=== PATIENT | female | born 1975 | race Hispanic/Latino ===

== ENCOUNTER 2024-12-23 01:21 | Emergency (ER) | payer BC ==
[~2024-12-23] VITALS: Ht 160 cm; Wt 66.7 kg
[2024-12-23] MEDS: HYDROcodone/APAP 5/325 1 TAB TABLET PO ONE (01:40)
[2024-12-23] MEDS ORDERED: KETO10TA2 PO (01:42)
[2024-12-23] MEDS ORDERED: AMOX1TAB16 PO (01:42)
--- NOTE | 2024-12-23 01:44 | ERN ---
ED Note History of Present Illness Stated Complaint: TOOTHACHE Chief Complaint: Tooth Ache/Pain Time Seen by MD: :22 Time Seen by Midlevel: :25 Dictation: 49-year-old female with no past medical history coming in with complaints of right molar pain onset 2 hours ago. Patient states pain started after eating a "sweet. States the area sensitive to hot and cold beverages. Allergies: Coded Allergies: No Known Allergies (Unverified Allergy, Unknown, 12/23/24) Past Medical History Past Medical History: No Pertinent History Surgical History: None Review of System Dictation Constitutional: Negative for fever,chills, and weight loss Eyes: Negative for injury, pain,redness, and discharge ENT: Negative for injury,pain or swelling, right molar pain Cardiovascular: Negative for chest pain, palpitations, and edema Respiratory: Negative for shortness of breath, cough, and wheezing, Abdomen/GI: Negative for abdominal pain, nausea, vomiting, diarrhea, and constipation Back: Negative for injury and pain : Negative for injury, bleeding and discharge MS/Extremity: Negative for injury and deformity Skin: Negative for rash, and discoloration Neuro: Negative for headache, weakness, numbness, tingling, and seizure Psych: Negative for suicide ideation, homicidal ideation, and hallucinations Review of Systems: was completed Initial Vital Sign VS Vital Signs Date Time Temp Pulse Resp B/P (MAP) Pulse Ox O2 Delivery O2 Flow Rate FiO2 12/23/24 01:22 97.3 65 16 151/79 99 Room Air 12/23/24 01:27 0 21 Physical Exam Dictation General: awake, alert, NAD Head/Face: Normocephalic, atraumatic Eyes: PERRL, EOMI, vision at baseline ENT: oral cavity clear, TMs clear, no signs of infection, dental pain localized to the right molar number 31 tender to percussion, no surrounding with gingival swelling or abscess noted. Neck: Trachea midline, supple, no nuchal rigidity Cardiovascular: RRR, normal S1/S2, No MRGs, no JVD Respiratory: CTAB, no respiratory distress, No rales or wheezes Abdomen: Soft, non-tender, non-distended, normal bowel sounds, no guarding or rebound. Skin: Warm, dry, normal turgor, no rash MS/Extremity: Pulses equal, no cyanosis, neurovascular intact, FROM Neuro: COAx4, GCS 15, strength 5/5, CN 2-12 intact, normal cerebellar exam, normal gait, Psych: Normal behavior, mood, and affect normal ED Course ED Course Orders Procedure Category Date Status Time Hydrocodone/Apap PHA 12/23/24 Complete 5/325 ([place] 5/325mg) 01:30 Ondansetron Odt 4mg PHA 12/23/24 Complete Tab (Zofran 4mg Odt) 01:30 Current Medications Medications (Trade) Dose Ordered Sig/Bandar Route PRN Reason Start Time Stop Time Status Last Admin Dose Admin Acetaminophen/ Hydrocodone Bitart (NORco 5/325MG) 1 tab ONCE ONCE PO 12/23/24 01:30 12/23/24 01:34 DC Ondansetron HCl (zoFRAN 4MG ODT) 4 mg ONCE ONCE SL 12/23/24 01:30 12/23/24 01:34 DC Vital Signs Date Time Temp Pulse Resp B/P (MAP) Pulse Ox O2 Delivery O2 Flow Rate FiO2 12/23/24 01:27 98.1 74 18 154/66 100 Room Air* 0 21 12/23/24 01:22 97.3 65 16 151/79 99 Room Air Medical Decision Making MDM MDM: 49-year-old female with no past medical history coming in with complaints of right molar pain onset 2 hours ago. Patient states pain started after eating a "sweet. States the area sensitive to hot and cold beverages. Patient will be given pain management here in the emergency room and she has been follow up outpatient with a dentist for further evaluation intervention. Discussed with the patient on signs and symptoms of when to return back to the emergency room. Patient verbalized understanding, answered all questions. Differential diagnosis: The patient, to the avulsion, cellulitis Rationale: Tests considered and ordered secondary to shared decision making include: Previous outside records reviewed: Old ER visits. Risk of complication and/or morbidity or mortality of patient management: None Medications-Per medication reconciliation Need for hospitalization: Patient does not meet criteria for hospitalization. Need for emergency major/minor surgery: No There are no social concerns with this patient. Prescription drug management Prescriptions will include symptomatic care Patient's prior external medical records from other ER visits were reviewed by me as indicated. Prior testing and results from previous visits were reviewed. Prior tests were taken into account with medical decision making and resource utilization, independent historian/historians were used to obtain complete medical history. I independently interpreted the test that were performed, results were reviewed by me and considered findings on radiology if ordered. Medical management and examination interpretation discussions were had by me with other qualified healthcare professionals as indicated for the patient's care. DX & DISP Disposition: Discharge Departure Impression: Primary Impression: Tooth infection Condition: Stable Scripts Ketorolac Tromethamine (Ketorolac Tromethamine) 10 Mg Tablet 1 TAB PO Q6HPRN PRN for pain for 5 Days, #20 TAB 0 Refills Prov: MAGGIE CLAROS CNP 12/23/24 Amoxicillin/Potassium Clav (Amox Tr-K Clv 875-125 mg Tab) 875 Mg-125 Mg Tablet 1 EACH PO BID for 5 Days, #10 TAB 0 Refills Prov: MAGGIE CLAROS CNP 12/23/24 Additional Instructions: Take antibiotics as prescribed. You need to follow up with a dentist for further evaluation and intervention. Return to the hospital if you develop any facial swelling, redness, fever nausea or vomiting. Take the pain medication with food to avoid any GI upset. Referrals: NONE (PCP) Time of Disposition: 01:42 I have reviewed the case, and I agree with, Diagnosis and Plan MAGGIE CLAROS CNP Dec 23, 2024 01:44
[2024-12-23 01:56] VITALS: BP 148/75; PULSE 81; RESP 18; TEMP 98.1; O2SAT 100
== END 2024-12-23 01:57 | disposition home or self-care (01) ==
LOC: EDH 01:21
DX: K04.7 Periapical abscess without sinus (principal)
CPT/HCPCS: 99283

== ENCOUNTER 2025-01-04 09:56 | Emergency (ER) | payer BC ==
[~2025-01-04] VITALS: Ht 160 cm; Wt 68.0 kg
[~2025-01-04 09:56] MED LIST: AMOX1TAB16 PO; KETO10TA2 PO
--- NOTE | 2025-01-04 10:16 | ERN ---
General Chief Complaint: Vaginal Problems/Bleeding Stated Complaint: VAGINA PAIN Time Seen by MD: 10:00 Source: patient History of Present Illness Initial Comments Patient is a 49-year-old female coming in to be evaluated for what she states it is a "ball " in her vagina. Patient states that she noticed it three days ago. Allergies: Coded Allergies: No Known Allergies (Unverified Allergy, Unknown, 12/23/24) Home Meds Active Scripts Ketorolac Tromethamine (Ketorolac Tromethamine) 10 Mg Tablet, 1 TAB PO Q6HPRN PRN for pain for 5 Days, #20 TAB 0 Refills Prov:MAGGIE CLAROS [facility] 12/23/24 Amoxicillin/Potassium Clav (Amox Tr-K Clv 875-125 mg Tab) 875 Mg-125 Mg Tablet, 1 EACH PO BID for 5 Days, #10 TAB 0 Refills Prov:MAGGIE CLAROS [facility] 12/23/24 Past Medical History Past Medical History: High Cholesterol, Hypertension Past Surgical History: None ROS Dictation CONSTITUTIONAL: No chills, no fever, no weakness, no diaphoresis, no malaise. HEAD/FACE: No signs of trauma. EENT: No eye pain, no blurred vision, no tearing, no double vision, no ear pain, no ear discharge, no nose pain, no nasal congestion, no throat pain, no throat swelling, no mouth pain. RESPIRATORY: No cough, no orthopnea, no SOB, no stridor, no wheezing. CARDIOVASCULAR: No chest pain, no edema, no palpitations, no syncope. GASTROINTESTINAL/ABDOMINAL: No abdominal pain, no constipation, no diarrhea, no nausea, no vomiting. GENITOURINARY: No abnormal discharge, no dysuria, no frequent urination, no hematuria. complaints of pain in the genitals. MUSCULOSKELETAL: No back pain, no gout, no joint pain, no joint swelling, no muscle pain, no muscle stiffness, no neck pain. INTEGUMENTARY: No change in color, no change in hair/nails, no dryness, no lesion, no lumps, no rash. NEUROLOGICAL/PSYCH: No anxiety, not depressed, no emotional problem, no headache, no numbness, no pre-existing deficit, no history of seizures, no tremors, no weakness. HEMATOLOGIC/LYMPHATIC: Not anemic, no history of blood clots, no apparent bl eeding, no bruising, glands not swollen. All Systems Negative, Except as Noted. Physical Exam Physical Exam Dictation VITAL SIGNS: Reviewed. GENERAL APPEARANCE: Alert, oriented x3, no acute distress, obese. HEAD AND FACE: Non-traumatic. EYES: PERRL, pink conjunctivas, eyelid no trauma, anterior chamber clear. EARS: Pinnas intact and no signs of trauma or erythema. Ear canals clear and no discharge. TMs no erythema. NOSE: No discharge, no bleeding. OROPHARYNX: Mouth normal, teeth no caries, tongue pink. Pharynx clear, no erythema. Tonsils no exudates, no abscesses noted. Mucous membrane moist. NECK: Supple, non-tender, no thyromegaly, no masses, no JVD, no bruits. BREAST: Deferred. CHEST: No tenderness, no crepitus, no paradoxical movement, no retractions. LUNGS: Clear, well-ventilated, symmetric, no rales, no wheezing, no rhonchi, no stridor, good breath sounds bilaterally. HEART: Regular rate, regular rhythm, no murmur, no gallops. VASCULAR: No peripheral edema. ABDOMEN: Soft, positive bowel sounds, nondistended, no guarding, nontender, no rebound, no masses no hepatomegaly, no splenomegaly, no Obrien's sign, no hernias. RECTAL: Deferred. GENITAL: Chaperoned by nurse pelvic exam was performed no acute findings were present, vaginal discharge NEUROLOGICAL: Normal speech, gross motor function intact, gross sensory function intact. MUSCULOSKELETAL: Neck nontender, full range of motion, back nontender, full range of motion. EXTREMITIES: Nontender, full range of motion. SKIN: Color pink, dry, no turgor, no rash, no lacerations, no abrasions, no contusions. LYMPHATICS: Deferred. Results Laboratory and Microbiology Labs Reviewed?: Yes MDM MDM: Differential diagnosis: Gynecological problem, vaginitis, Rationale: Tests considered and ordered secondary to shared decision making include: Previous outside records reviewed: Old ER visits. Risk of complication and/or morbidity or mortality of patient management: None Medications-Per medication reconciliation Need for hospitalization: Patient does not meet criteria for hospitalization. Need for emergency major/minor surgery: No There are no social concerns with this patient. Patient is a 49-year-old female coming in to be evaluated for which she stated was a ball in her vagina. On pelvic exam no findings were present. Possibility could be rectocele, or cystocele . We will discharge patient with a topical antifungal and we will advise her to follow up with the Gynecology. ED Course Vital Signs Date Time Temp Pulse Resp B/P (MAP) Pulse Ox O2 Delivery O2 Flow Rate FiO2 01/04/25 09:57 98.6 68 18 139/69 100 Room Air 0 DX & DISP Disposition: Discharge Departure Impression: Primary Impression: Cystocele Additional Impression: Vaginitis Condition: Stable Scripts Miconazole Nitrate (Monistat 7) 2 % Cream.appl 1 AL VG HS for 7 Days, #45 GM 0 Refills Prov: ARUN ESPINOZA MD 01/04/25 Additional Instructions: FOLLOW-UP WITH PRIMARY CARE PROVIDER IN 1 TO 2 DAYS. TAKE MEDICATIONS DIRECTED HERE IN THE EMERGENCY ROOM. OKAY TO CONTINUE HOME MEDICATIONS UNLESS OTHERWISE DISCUSSED DURING YOUR VISIT IN THE EMERGENCY ROOM TODAY. RETURN TO YOUR NEAREST EMERGENCY ROOM IF SYMPTOMS WORSEN OR IF THERE IS NO IMPROVEMENT. CALL 911 IF YOU NEED IMMEDIATE ASSISTANCE. TAKE TYLENOL [id number] NEEDED AND IF NO CONTRAINDICATIONS ARE PRESENT. INCREASE ORAL HYDRATION. A WOUND CULTURE OR URINE CULTURE WAS ORDERED HERE IN THE EMERGENCY ROOM DEPARTMENT PLEASE FOLLOW-UP WITH PRIMARY CARE PROVIDER AND ADVISE THEM TO GET REPORTS FROM OUR FACILITY. IF YOU HAD ANY SHAUN WRAP/SPLINTS THAT WERE APPLIED HERE, PLEASE DO NOT REMOVE THEM UNTIL YOU SEE YOUR PRIMARY CARE OR SPECIALTY. Referrals: Referrals: SELF,REFERRAL (PCP) CAITLIN FREDERICK MD Time of Disposition: 10:27 ARUN ESPINOZA MD Jan 04, 2025 10:16
[2025-01-04 10:27] VITALS: BP 139/69; PULSE 68; RESP 16; TEMP 98.3; O2SAT 100
[2025-01-04] MEDS ORDERED: MICO45CR77 VG (10:28)
== END 2025-01-04 10:37 | disposition home or self-care (01) ==
LOC: EDH 09:56
DX: N76.0 Acute vaginitis (principal); N81.10 Cystocele, unspecified; I10 Essential (primary) hypertension; E78.00 Pure hypercholesterolemia, unspecified; Z79.899 Other long term (current) drug therapy
CPT/HCPCS: 99284